=== PATIENT | male | born 1940 | race Caucasian/White ===

== ENCOUNTER 2016-12-01 16:10 | Emergency (ER) | payer OTHER ==
[~2016-12-01] VITALS: Ht 177.8 cm; Wt 128.2 kg
[~2016-12-01 16:10] MED LIST: ADULT LOW DOSE81 M1 PO; AGGRENOX1 CAPSULE PO; BISOPROLOL-HCT1 EACH PO; GLIPIZIDE10 MG PO; GLUCOPHAGE1000 M1 PO; JANUVIA100 MG PO; NORVASC10 MG PO; OXYCODONE5 MG PO; PRINIVIL20 MG PO; SIMVASTATIN40 MG PO; Vicodin,Norco 5/325 PO
[2016-12-01 17:02] LABS: HEMATOCRIT 40.7 % (38.0-50.0); MCH 31.7 PG (29.0-34.0); MCHC 32.9 G/DL (30.0-36.0); MCV 96.2 FL (86-99); MEAN PLAT.VOLUME 10.4 uM^3 (9.0-12.4); PLATELET COUNT 203 K/uL (156-360); RBC DIS.WIDTH-CV 13.8 % (11.8-14.6); RBC DIS.WIDTH-SD 48.9 % (39-53); RED BLOOD COUNT 4.23 M/uL (4.00-5.50); WHITE BLOOD COUNT 12.4 K/uL (4.1-10.2)
[2016-12-01 17:12] LABS: CHLORIDE 102 mEq/L (99-109); POTASSIUM 5.1 mEq/L (3.7-5.4); SODIUM 136 mEq/L (136-147)
[2016-12-01 17:13] LABS: GLUCOSE 123 mg/dL (70-99)
[2016-12-01 17:15] LABS: ANION GAP 11 MEQ/L (2-14)
[2016-12-01 17:17] LABS: GFR ESTIMATE (CALCULATED) 29 mL/min/
[2016-12-01 17:18] LABS: UREA NITROGEN (BUN) 46 mg/dL (9-23)
[2016-12-01 17:24] LABS: TROP-I INTERPRETATION NEGATIVE; TROPONIN-I 0.01 ng/mL (0.0-0.30)
[2016-12-01 21:16] LABS: POINT-OF-CARE METER ID UU13113747
[2016-12-02 00:19] VITALS: BP 162/61
== END 2016-12-02 00:27 | disposition home or self-care (01) ==
LOC: EME 16:10
PROVIDERS: Emergency Medicine
DX: I12.9 Hypertensive chronic kidney disease with stage 1 through stage 4 chronic kidney disease, or unspecified chronic kidney disease (principal); E11.22 Type 2 diabetes mellitus with diabetic chronic kidney disease; N18.9 Chronic kidney disease, unspecified; E78.5 Hyperlipidemia, unspecified; Z87.891 Personal history of nicotine dependence; Z79.82 Long term (current) use of aspirin; M79.89 Other specified soft tissue disorders
CPT/HCPCS: 70450; 71020; 80048; 82948; 84484; 85027; 93005; 93971; 99281; 99285